=== PATIENT | male | born 1975 | race Caucasian/White ===

== ENCOUNTER 2017-09-08 10:47 | Emergency (ER) | payer OTHER ==
[2017-09-08] MEDS: NS 500 ML IV (11:00)
[2017-09-08 11:21] LABS: BASO % 0.7 % (0.0-1.0); EOS # 0.3 10^3/uL (0.0-0.50); EOS % 5.4 % (0.0-3.0); HEMATOCRIT 43.1 % (42.0-52.0); IMMATURE GRANULOCYTE % 0.3 % (0-3.0); LYMPH # 0.8 10^3/uL (1.5-4.5); LYMPH % 13.4 % (24.0-44.0); MEAN CORPUSCULAR HGB CONC 34.8 g/dl (32.0-36.5); MONO # 0.4 10^3/uL (0.0-0.8); NEUTROPHILS # 4.6 10^3/uL (1.8-7.7); NEUTROPHILS % 74.2 % (36.0-66.0); PLATELET COUNT, AUTOMATED 166 10^3/uL (150-450); RED BLOOD COUNT 4.84 10^6/uL (4.30-6.10); WHITE BLOOD COUNT 6.1 10^3/uL (4.0-10.0)
[2017-09-08 11:47] LABS: LACTIC ACID SEPSIS PROTOCOL 1.2 MMOL/L (0.4-2.0)
[2017-09-08 11:47] LABS: ALBUMIN 3.9 GM/DL (3.2-5.2); ALBUMIN/GLOBULIN RATIO 1.18 (1.00-1.93); ALKALINE PHOSPHATASE 63 U/L (45-117); ALT/SGPT 36 U/L (12-78); ANION GAP 5 MEQ/L (8-16); AST/SGOT 23 U/L (7-37); BILIRUBIN,DIRECT < 0.1 MG/DL (0.0-0.2); BILIRUBIN,TOTAL 0.5 MG/DL (0.2-1.0); BLOOD UREA NITROGEN 29 MG/DL (7-18); CALCIUM LEVEL 8.9 MG/DL (8.5-10.1); CARBON DIOXIDE LEVEL 27 MEQ/L (21-32); CHLORIDE LEVEL 106 MEQ/L (98-107); CREATININE FOR GFR 1.39 MG/DL (0.70-1.30); GLOMERULAR FILTRATION RATE 59.4 (>60); GLUCOSE, FASTING 98 MG/DL (70-100); POTASSIUM SERUM 4.5 MEQ/L (3.5-5.1); SODIUM LEVEL 138 MEQ/L (136-145); TOTAL PROTEIN 7.2 GM/DL (6.4-8.2)
[2017-09-08] MEDS: NS 1,000 ML IV (13:40)
[2017-09-08 13:41] LABS: KETONE, URINE AUTO RFX NEGATIVE (NEGATIVE); LEUKOCYTE ESTERASE UR AUTO RFX NEGATIVE (NEGATIVE); NITRITE, URINE AUTO RFX NEGATIVE (NEGATIVE); RBC, URINE AUTO RFX 0 /HPF (0-3); SQUAM EPITHELIAL CELL UR AURFX 0 /HPF (0-6); WBC, URINE AUTO RFX 0 /HPF (0-3)
[2017-09-08 13:57] LABS: AMPHETAMINES LEVEL URINE NEGATIVE (NEGATIVE); BARBITURATES URINE NEGATIVE (NEGATIVE); BENZODIAZEPINES URINE NEGATIVE (NEGATIVE); CANNABINOIDS URINE NEGATIVE (NEGATIVE); COCAINE METABOLITE URINE NEGATIVE (NEGATIVE); METHADONE URINE NEGATIVE (NEGATIVE); OPIATES URINE NEGATIVE (NEGATIVE); PHENCYCLIDINE URINE NEGATIVE (NEGATIVE)
== END 2017-09-08 15:14 | disposition home or self-care (01) ==
LOC: M ED 10:47
DX: R56.9 Unspecified convulsions (principal)
CPT/HCPCS: 71046

== ENCOUNTER → 2017-09-16 | Outpatient (CLI) | payer OTHER ==
[2017-09-16 12:16] LABS: BASO % 0.8 % (0.0-1.0); EOS # 0.1 10^3/uL (0.0-0.50); EOS % 2.6 % (0.0-3.0); HEMATOCRIT 45.2 % (42.0-52.0); HEMOGLOBIN 15.7 g/dl (13.5-17.5); IMMATURE GRANULOCYTE % 0.3 % (0-3.0); LYMPH # 0.7 10^3/uL (1.5-4.5); MEAN CORPUSCULAR HEMOGLOBIN 30.8 pg (27.0-33.0); MEAN CORPUSCULAR HGB CONC 34.7 g/dl (32.0-36.5); MEAN CORPUSCULAR VOLUME 88.8 fl (80.0-96.0); MONO # 0.5 10^3/uL (0.0-0.8); MONO % 14.1 % (0.0-5.0); NEUTROPHILS # 2.5 10^3/uL (1.8-7.7); NEUTROPHILS % 65.2 % (36.0-66.0); PLATELET COUNT, AUTOMATED 128 10^3/uL (150-450); RED BLOOD COUNT 5.09 10^6/uL (4.30-6.10); RED CELL DISTRIBUTION WIDTH 12.6 % (11.5-14.5); WHITE BLOOD COUNT 3.8 10^3/uL (4.0-10.0)
[2017-09-16 12:55] LABS: TOTAL 25(OH) VITAMIN D 25.6 NG/ML (30.0-100.0)
[2017-09-16 13:28] LABS: ERYTHROCYTE SEDIMENTATION RATE 4 mm/hr (0-15)
[2017-09-16 17:25] LABS: ALBUMIN 4.1 GM/DL (3.2-5.2); ALBUMIN/GLOBULIN RATIO 1.11 (1.00-1.93); ALKALINE PHOSPHATASE 71 U/L (45-117); ALT/SGPT 32 U/L (12-78); ANION GAP 6 MEQ/L (8-16); AST/SGOT 21 U/L (7-37); BILIRUBIN,TOTAL 0.6 MG/DL (0.2-1.0); BLOOD UREA NITROGEN 13 MG/DL (7-18); CALCIUM LEVEL 8.7 MG/DL (8.5-10.1); CARBON DIOXIDE LEVEL 30 MEQ/L (21-32); CHLORIDE LEVEL 105 MEQ/L (98-107); CREATININE FOR GFR 1.53 MG/DL (0.70-1.30); GLOMERULAR FILTRATION RATE 53.1 (>60); GLUCOSE, FASTING 92 MG/DL (70-100); POTASSIUM SERUM 4.2 MEQ/L (3.5-5.1); SODIUM LEVEL 141 MEQ/L (136-145); TOTAL PROTEIN 7.8 GM/DL (6.4-8.2)
== END ==
LOC: M LAB 11:50
DX: R25.9 Unspecified abnormal involuntary movements (principal)
CPT/HCPCS: 70200

== ENCOUNTER 2017-09-18 10:47 | Emergency (ER) | payer OTHER ==
[2017-09-18] MEDS: diphenhydrAMINE 50 MG CAP PO (11:33)
[2017-09-18] MEDS: FAMOTIDINE 20 MG TAB PO (11:33)
[2017-09-18] MEDS: predniSONE 20 MG TAB PO (11:34)
== END 2017-09-18 12:23 | disposition home or self-care (01) ==
LOC: M ED 10:47
DX: T42.6X5A Adverse effect of other antiepileptic and sedative-hypnotic drugs, initial encounter (principal); Y92.9 Unspecified place or not applicable; Y93.9 Activity, unspecified; G40.209 Localization-related (focal) (partial) symptomatic epilepsy and epileptic syndromes with complex partial seizures, not intractable, without status epilepticus; M54.2 Cervicalgia; Z79.899 Other long term (current) drug therapy; Z88.8 Allergy status to other drugs, medicaments and biological substances
CPT/HCPCS: 99283

== ENCOUNTER → 2017-09-22 | Outpatient (CLI) | payer OTHER ==
[2017-09-22 18:38] LABS: ALBUMIN/GLOBULIN RATIO 1.25 (1.00-1.93); ALKALINE PHOSPHATASE 66 U/L (45-117); ALT/SGPT 50 U/L (12-78); ANION GAP 7 MEQ/L (8-16); AST/SGOT 29 U/L (7-37); BILIRUBIN,TOTAL 0.5 MG/DL (0.2-1.0); BLOOD UREA NITROGEN 25 MG/DL (7-18); CALCIUM LEVEL 8.9 MG/DL (8.5-10.1); CARBON DIOXIDE LEVEL 31 MEQ/L (21-32); CHLORIDE LEVEL 104 MEQ/L (98-107); CREATININE FOR GFR 1.62 MG/DL (0.70-1.30); GLOMERULAR FILTRATION RATE 49.8 (>60); GLUCOSE, FASTING 88 MG/DL (70-100); POTASSIUM SERUM 3.6 MEQ/L (3.5-5.1); SODIUM LEVEL 142 MEQ/L (136-145); TOTAL PROTEIN 7.2 GM/DL (6.4-8.2)
[2017-09-22 18:48] LABS: BASO # 0.1 10^3/uL (0.0-0.2); BASO % 0.6 % (0.0-1.0); EOS # 0.1 10^3/uL (0.0-0.50); EOS % 0.7 % (0.0-3.0); HEMATOCRIT 42.5 % (42.0-52.0); HEMOGLOBIN 15.1 g/dl (13.5-17.5); IMMATURE GRANULOCYTE % 0.4 % (0-3.0); LYMPH # 2.5 10^3/uL (1.5-4.5); LYMPH % 25.9 % (24.0-44.0); MEAN CORPUSCULAR HEMOGLOBIN 30.9 pg (27.0-33.0); MEAN CORPUSCULAR HGB CONC 35.5 g/dl (32.0-36.5); MEAN CORPUSCULAR VOLUME 86.9 fl (80.0-96.0); MONO # 0.9 10^3/uL (0.0-0.8); MONO % 9.1 % (0.0-5.0); NEUTROPHILS % 63.3 % (36.0-66.0); PLATELET COUNT, AUTOMATED 196 10^3/uL (150-450); RED BLOOD COUNT 4.89 10^6/uL (4.30-6.10); RED CELL DISTRIBUTION WIDTH 12.4 % (11.5-14.5); WHITE BLOOD COUNT 9.5 10^3/uL (4.0-10.0)
== END ==
LOC: M LAB 16:38
DX: N18.9 Chronic kidney disease, unspecified (principal)
CPT/HCPCS: 80053

== ENCOUNTER → 2017-09-23 | Outpatient (CLI) | payer OTHER ==
[~2017-09-23] MED LIST: GASTROGRAFIN SOLUTION 30ML (Q9963) As Ordered; ISOVUE-370 76% 100ML VIAL (Q9967) As Ordered
== END ==
LOC: M RAD 10:31
DX: G40.009 Localization-related (focal) (partial) idiopathic epilepsy and epileptic syndromes with seizures of localized onset, not intractable, without status epilepticus (principal); C71.3 Malignant neoplasm of parietal lobe
CPT/HCPCS: Q9963

== ENCOUNTER → 2017-09-29 | Outpatient (CLI) | payer OTHER | LOC: M EKG 11:47 | DX: Z01.818 Encounter for other preprocedural examination (principal); I44.0 Atrioventricular block, first degree | CPT/HCPCS: 71046 ==

== ENCOUNTER → 2017-09-29 | Outpatient (REF) | payer OTHER ==
[2017-09-29 14:26] LABS: HIV 1&2 SCREEN CENTAUR NEGATIVE (NEGATIVE)
== END ==
LOC: M LAB REF 12:57
DX: G93.9 Disorder of brain, unspecified (principal)

== ENCOUNTER → 2017-09-29 | Outpatient (REF) | payer OTHER ==
[2017-09-29 13:20] LABS: INR 0.98; PARTIAL THROMBOPLASTIN TIME 27.8 SECONDS (25.4-37.6); PROTHROMBIN TIME 13.1 SECONDS (12.1-14.4)
[2017-09-29 13:30] LABS: COLLAGEN EPINEPHRINE 114 SECONDS (74-162)
[2017-09-29 14:25] LABS: HIV 1&2 SCREEN CENTAUR NEGATIVE (NEGATIVE)
== END ==
LOC: M LAB REF 12:42
DX: G93.9 Disorder of brain, unspecified (principal)

== ENCOUNTER → 2018-02-27 | Outpatient (CLI) | payer OTHER ==
[2018-02-27 12:57] LABS: BASO % 0.3 % (0.0-1.0); EOS % 0.4 % (0.0-3.0); HEMATOCRIT 42.1 % (42.0-52.0); HEMOGLOBIN 14.2 g/dl (13.5-17.5); IMMATURE GRANULOCYTE % 0.7 % (0-3.0); LYMPH # 0.6 10^3/uL (1.5-4.5); LYMPH % 9.1 % (24.0-44.0); MEAN CORPUSCULAR HGB CONC 33.7 g/dl (32.0-36.5); MEAN CORPUSCULAR VOLUME 97.9 fl (80.0-96.0); MONO # 0.4 10^3/uL (0.0-0.8); MONO % 5.3 % (0.0-5.0); NEUTROPHILS # 5.9 10^3/uL (1.8-7.7); NEUTROPHILS % 84.2 % (36.0-66.0); PLATELET COUNT, AUTOMATED 167 10^3/uL (150-450); RED CELL DISTRIBUTION WIDTH 12.8 % (11.5-14.5)
== END ==
LOC: M WUC 10:17
DX: C71.1 Malignant neoplasm of frontal lobe (principal)
CPT/HCPCS: 85025

== ENCOUNTER → 2018-03-09 | Outpatient (CLI) | payer OTHER ==
[2018-03-09 16:52] LABS: BASO % 0.1 % (0.0-1.0); EOS % 0.4 % (0.0-3.0); HEMOGLOBIN 14.5 g/dl (13.5-17.5); IMMATURE GRANULOCYTE % 0.4 % (0-3.0); LYMPH # 0.9 10^3/uL (1.5-4.5); LYMPH % 13.3 % (24.0-44.0); MEAN CORPUSCULAR HEMOGLOBIN 33.3 pg (27.0-33.0); MEAN CORPUSCULAR HGB CONC 33.7 g/dl (32.0-36.5); MEAN CORPUSCULAR VOLUME 98.6 fl (80.0-96.0); MONO # 0.5 10^3/uL (0.0-0.8); MONO % 6.6 % (0.0-5.0); NEUTROPHILS # 5.5 10^3/uL (1.8-7.7); NEUTROPHILS % 79.2 % (36.0-66.0); PLATELET COUNT, AUTOMATED 153 10^3/uL (150-450); RED BLOOD COUNT 4.36 10^6/uL (4.30-6.10); RED CELL DISTRIBUTION WIDTH 12.8 % (11.5-14.5); WHITE BLOOD COUNT 6.9 10^3/uL (4.0-10.0)
== END ==
LOC: M WUC 14:26
DX: C71.1 Malignant neoplasm of frontal lobe (principal)
CPT/HCPCS: 85025

== ENCOUNTER → 2018-05-28 | Outpatient (RCR) | payer OTHER ==
[~2018-05-28] MED LIST changes: +APTI1TAB2 PO; +DEPA500T2 PO; +DEXA4TA PO; -GASTROGRAFIN SOLUTION 30ML (Q9963) As Ordered; -ISOVUE-370 76% 100ML VIAL (Q9967) As Ordered; +KEPP500T13 PO; +PRED20TA PO
--- NOTE | 2018-05-28 14:32 | NUR ---
Patient presents with a moderate motor speech impairment and mild aphasia noted during conversational speech. Signs of apraxia and dysarthria are present. Speech therapy is recommended two times weekly for at least 4 weeks. However, this patient is unable attend therapy more than one time per week due to scheduling and transportation. This patient is highly motivated and [employer] SU[employer]IST will implement an intensive HEP to maximize rehabilitation of speech and language. Addendum: 05/28/18 at 1434 by KAYCEE CHEN Amended: Links added.
== END ==
LOC: M ST 11:17
PROVIDERS: ATTEND Neurological Surgery
DX: C71.9 Malignant neoplasm of brain, unspecified (principal); Z48.3 Aftercare following surgery for neoplasm

== ENCOUNTER → 2018-06-09 | Outpatient (REF) | payer OTHER | LOC: M SMT 14:21 | PROVIDERS: ATTEND Urology | DX: Z30.2 Encounter for sterilization (principal) ==

== ENCOUNTER 2018-06-10 13:31 | Outpatient (RCR) | payer OTHER | END 2018-06-28 | LOC: M ST 13:31 | PROVIDERS: ATTEND Neurological Surgery | DX: C71.1 Malignant neoplasm of frontal lobe (principal) ==

== ENCOUNTER → 2018-08-11 | Outpatient (REF) | payer OTHER ==
[2018-08-11 10:23] LABS: SEMEN APPEARANCE OPAQUE (OPAQUE); SEMEN VISCOSITY LIQUID (LIQUID); SEMEN VOLUME 0.9 ml (4.0-5.0); WBC CONCENTRATION >1 M/ml (<=1 M/ml)
== END ==
LOC: M SMT 10:02
PROVIDERS: ATTEND Urology
DX: Z30.2 Encounter for sterilization (principal)

== ENCOUNTER 2021-12-18 10:13 | Emergency (ER) | payer OTHER ==
[~2021-12-18] VITALS: Ht 175.3 cm; Wt 106.4 kg
[~2021-12-18 10:13] MED LIST changes: +ACET-683 PO; +DEPA250T32 PO; +DEXA2TA; +LOSA25TA13 PO; +METO1TAB32 PO; +Medical Marijuana; +PRAV40TA2 PO; +PROB250C PO; +THERTAB52 PO
[2021-12-18] MEDS ORDERED: HYDROMORPHONE HCL 0.5 MG/ 0.5 ML SYRINGE (J1170 PER 1) IV PRN (10:55)
[2021-12-18 11:20] LABS: BASO % 0.3 % (0.0-1.0); HEMATOCRIT 43.2 % (42.0-52.0); HEMOGLOBIN 14.4 g/dl (13.5-17.5); LYMPH # 0.8 10^3/uL (1.5-5.0); LYMPH % 6.9 % (24.0-44.0); MEAN CORPUSCULAR HEMOGLOBIN 31.6 pg (27.0-33.0); MEAN CORPUSCULAR HGB CONC 33.3 g/dl (32.0-36.5); MEAN CORPUSCULAR VOLUME 94.9 fl (80.0-96.0); MONO # 0.6 10^3/uL (0.0-0.8); MONO % 5.5 % (2.0-8.0); NEUTROPHILS % 82.3 % (36.0-66.0); PLATELET COUNT, AUTOMATED 114 10^3/uL (150-450); RED BLOOD COUNT 4.55 10^6/uL (4.30-6.10); WHITE BLOOD COUNT 10.9 10^3/uL (4.0-10.0)
[2021-12-18 11:29] LABS: INR 0.93; PARTIAL THROMBOPLASTIN TIME 21.6 SECONDS (25.9-37.0); PROTHROMBIN TIME 12.9 SECONDS (12.7-14.5)
[2021-12-18 11:39] LABS: RSV AMPLIFICATION NEGATIVE (NEGATIVE)
[2021-12-18 11:56] LABS: ALT/SGPT 83 U/L (12-78); BILIRUBIN,DIRECT 0.2 MG/DL (0.0-0.2); BILIRUBIN,TOTAL 0.6 MG/DL (0.2-1.0); BLOOD UREA NITROGEN 31 MG/DL (7-18); CALCIUM LEVEL 8.6 MG/DL (8.5-10.1); CARBON DIOXIDE LEVEL 32 MEQ/L (21-32); CHLORIDE LEVEL 100 MEQ/L (98-107); CREATININE FOR GFR 0.83 MG/DL (0.70-1.30); GLOMERULAR FILTRATION RATE > 60.0 (>60); GLUCOSE, FASTING 92 MG/DL (70-100); LIPASE 298 U/L (73-393); POTASSIUM SERUM 4.4 MEQ/L (3.5-5.1); SODIUM LEVEL 138 MEQ/L (136-145); TOTAL PROTEIN 5.8 GM/DL (6.4-8.2)
[2021-12-18] MEDS ORDERED: dexameTHASONE 4 MG/ML 1ML VIAL (J1100 PER 1MG) IV ONE (15:45)
[2021-12-18] MEDS ORDERED: FIORICET TAB PO ONE (17:10)
[2021-12-18] MEDS ORDERED: DEXA1TA PO (17:20)
[2021-12-18] MEDS ORDERED: DEXA4TA PO (17:20)
[2021-12-18] MEDS ORDERED: DIVALPROEX 250MG *ER* TAB PO ONE (17:35)
[2021-12-19] MEDS ORDERED: LOSARTAN 50MG TABLET PO ONE (07:15)
[2021-12-19] MEDS ORDERED: METOPROLOL SUCC *XL* 25MG TAB (TopROL *XL*) PO ONE (07:15)
[2021-12-19] MEDS ORDERED: DIVALPROEX 250MG *ER* TAB PO ONE (07:15)
[2021-12-19] MEDS ORDERED: PRAVASTATIN 20 MG TAB PO ONE (07:15)
[2021-12-19] MEDS ORDERED: MULTIVITAMINS/MINERALS THERAP 1 TAB PO ONE (07:15)
[2021-12-19 07:40] VITALS: BP 140/100
[2021-12-19] MEDS ORDERED: HOME MED LIST COMPLETE! XX SCH ×2 (07:55→08:10)
[2021-12-19] MEDS ORDERED: DIVA250T7 PO (08:06)
[2021-12-19] MEDS ORDERED: DEXA1TA PO (08:06)
[2021-12-19] MEDS ORDERED: FIORICET TAB PO ONE (09:25)
[2021-12-19 09:29] VITALS: BP 132/94
== END 2021-12-19 09:38 | disposition home or self-care (01) ==
LOC: M ED 10:13
DX: G96.08 Other cranial cerebrospinal fluid leak (principal); Z85.841 Personal history of malignant neoplasm of brain; N18.9 Chronic kidney disease, unspecified; I10 Essential (primary) hypertension; E78.5 Hyperlipidemia, unspecified; G81.91 Hemiplegia, unspecified affecting right dominant side; I71.2 Thoracic aortic aneurysm, without rupture; E66.9 Obesity, unspecified; M54.30 Sciatica, unspecified side; Z88.8 Allergy status to other drugs, medicaments and biological substances; Z79.899 Other long term (current) drug therapy
CPT/HCPCS: 70450; 80048; 80076; 83605; 83690; 85025; 85610; 85730; 86850; 86900; 86901; 87040; 87631; 96374; 99285; J1100